=== PATIENT | male | born 1980 | race Caucasian/White ===

== ENCOUNTER 2017-05-28 19:29 | Day surgery (SDC) | payer OTHER ==
--- NOTE | 2017-05-28 19:40 | EDPHY ---
H & P Stated Complaint: SOMETHING STUCK IN THROAT SINCE 3 PM HPI/ROS: CHIEF COMPLAINT: Beef jerky stuck in throat HISTORY OF PRESENT ILLNESS: This patient is a 36 year old male arriving with his family from urgent care complaining of a bolus of beef jerky stuck in his throat since around 15:00 today. He originally attempted to wash the bolus down with a large quantity of water, but choked and could not breathe until he cleared the water from his throat. Since that time, he has been unable to swallow any water or medications. He is able to swallow some saliva. He has been hiccuping and belching often. He visited urgent care and received glucagon and Ativan injections. After a failed attempt to take PO Ativan with water, he was directed to present to the emergency department. The patient has no other complaints. No previous difficulty with swallowing or food impaction. REVIEW OF SYSTEMS: A ten point review of systems was performed and is negative with the exception of the items mentioned in the HPI. - Personal History Current Tetanus/Diphtheria Vaccine: Yes Current Tetanus Diphtheria and Acellular Pertussis (TDAP): Yes - Medical/Surgical History Hx Asthma: Yes Hx Chronic Respiratory Disease: No Hx Diabetes: No Hx Cardiac Disease: No Hx Renal Disease: No Hx Cirrhosis: No Hx Alcoholism: No Hx HIV/AIDS: No Hx Splenectomy or Spleen Trauma: No - Social History Smoking Status: Never smoked Alcohol Use: None Additional Social History: He is with two children. 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 Recently relocated from [place]. - Physical Exam Exam: General Appearance: Alert. Vital signs reviewed. Blood pressure 175/117. Eyes: Pupils equal and round, no conjunctival injection, no discharge. Anicteric. ENT, Mouth: Mucous membranes are moist, no oropharyngeal erythema or edema. Occasionally spitting into a cup. Intermittent hiccups. Neck: Trachea midline. No lymphadenopathy, supple. Respiratory: Lungs are clear to auscultation; no wheezes, rales, or rhonchi. Cardiovascular: Regular rate and rhythm; no murmur, rub, or gallop. Gastrointestinal: Abdomen is soft and nontender, no masses or organomegaly, bowel sounds normal. Skin: Warm and dry, no rashes on exposed skin, normal color. Extremities: No lower extremity edema, no calf tenderness or swelling. Neurological: Alert and oriented. Moving all four extremities easily and equally. Psychiatric: Normal affect. Constitutional: Initial Vital Signs Temperature (C) 36.8 C 05/28/17 19:33 Heart Rate 80 05/28/17 19:33 Respiratory Rate 18 05/28/17 19:33 Blood Pressure 175/117 H 05/28/17 19:33 O2 Sat (%) 98 05/28/17 19:33 O2 Delivery Mode Room Air Allergies/Adverse Reactions: Sulfa (Sulfonamide Antibiotics) Allergy (Verified 05/28/17 19:35) Home Medications: Medication Instructions Recorded Albuterol Sulfate [Ventolin Hfa] 05/28/17 Medical Decision Making ED Course/Re-evaluation: 19:[address] 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 Upper endoscopy for esophageal food impaction planned. He remained stable while in the emergency department. Differential Diagnosis: I considered a differential diagnosis that includes but is not limited to esophageal food impaction, esophageal stricture, esophageal mass, ulcer disease/ GERD, and hiatal hernia. Departure - Departure Disposition: Home, Routine, Self-Care Clinical Impression: Esophageal obstruction due to food impaction Condition: Good Report Scribed for: Zainab De La Rosa Report Scribed by: Pat Almendarez Date of Report: 05/28/17 Time of Report: 19:45 Physician Review and Approval Statement: 05/28/17 19:39 Portions of this note were transcribed by the product manager medical device. I, Dr. Zainab De La Rosa, personally performed the history, physical exam, and medical decision- making; and confirmed the accuracy of the information in the transcribed note.
[2017-05-28] MEDS ORDERED: LR 1,000 ML IV ONE (20:28)
[2017-05-28] MEDS ORDERED: PROPOFOL 200 MG/20 ML VIAL ONE ×2 (20:49→20:51)
[2017-05-28] MEDS ORDERED: SUCCINYLCHOLINE CHLORIDE*ANESTHESIA ONLY*200 MG/10 ML SYR IVP ONE (20:51)
[2017-05-28] MEDS ORDERED: LIDOCAINE 2% 5 ML SDV ONE (20:51)
[2017-05-28] MEDS ORDERED: ALBUTEROL HFA ANES ONLY 200 PUFFS/8.5 GM MDI IH ONE (21:11)
[2017-05-28] MEDS ORDERED: NALOXONE HCL 0.4 MG/ML INJ IVP PRN (21:26)
[2017-05-28] MEDS ORDERED: ACETAMINOPHEN 500 MG TAB PO PRN (21:26)
[2017-05-28] MEDS ORDERED: fentaNYL 100 MCG/2 ML INJ IVP PRN ×2 (21:26)
[2017-05-28] MEDS ORDERED: ONDANSETRON 4 MG/2 ML VIAL IVP PRN (21:26)
--- NOTE | 2017-05-28 21:27 | PDANEPAE ---
ANE History of Present Illness EGD ANE Past Medical History - Pulmonary History Hx Oxygen in Use at Home: No - Endocrine History Hx Diabetes: No ANE Review of Systems Review of systems is: negative - Exercise capacity METS (RN): 4 METS ANE Patient History - Allergies Allergies/Adverse Reactions: Sulfa (Sulfonamide Antibiotics) Allergy (Verified 05/28/17 19:35) - Home Medications Home Medications: Albuterol Sulfate [Ventolin Hfa] 05/28/17 [Last Taken 05/21/17] - Smoking Hx Smoking Status: Never smoked ANE Labs/Vital Signs - Vital Signs Blood Pressure: 163/98 Heart Rate: 92 Respiratory Rate: 16 O2 Sat (%): 96 Height: 185.42 cm Weight: 108.862 kg ANE Physical Exam - Airway Neck exam: FROM Mallampati Score: Class 2 Mouth exam: normal dental/mouth exam - Pulmonary Pulmonary: clear to auscultation - Cardiovascular Cardiovascular: regular rate and rhythym - ASA Status ASA Status: II, E ANE Anesthesia Plan Anesthesia Plan: general endotracheal anesthesia
--- NOTE | 2017-05-28 21:28 | POSTANESTH ---
Post Anesthetic Evaluation Cardiovascular Status: Normal, Stable Respiratory Status: Normal, Stable Level of Consciousness/Mental Status: Can Participate in Eval, Alert and Oriented Pain Control: Adequate, Prn Tx Ordered Nausea/Vomiting Control: Adequate, Prn Tx Ordered Complications Possibly Related to Anesthesia: None Noted
--- NOTE | 2017-05-28 21:29 | GCON ---
[f rep st] CONSULTATION DATE OF CONSULTATION: 05/28/2017 CHIEF COMPLAINT: Dysphagia. HISTORY OF PRESENT ILLNESS: I am asked to see this patient in consultation by Dr. De La Rosa for a evelyne f complaint of dysphagia. The patient is a pleasant 36-year-old, who has a long history of GERD. I t occurs about 4 times a week for which he takes Zantac on a p.r.n. basis. He had an episode of dys phagia eating meat about a month ago that passed spontaneously. Today, about 3 p.m. he ate a bite t o beef jerky which he describes as being a large bite and felt it stick in his esophagus, unable to swallow saliva. He first presented to [facility]. They gave him Ativan and glucagon with some improvement, but still unable to swallow liquids, feeling a foreign body sensati on, he points to his manubrial notch. The patient still has concerns for retained foreign body. ALLERGIES: Sulfa. CURRENT MEDICATIONS: Albuterol and Zantac p.r.n. PAST MEDICAL HISTORY: Reactive airways disease. SOCIAL HISTORY: The patient does not smoke or drink alcohol. FAMILY HISTORY: Notable for alcohol disease in his father. REVIEW OF SYSTEMS: I performed a complete review of systems which is negative except for the pertin ent positives and negatives noted in the HPI above. PHYSICAL EXAMINATION: GENERAL: He is afebrile. No apparent distress. Does have to spit into a cu p periodically. EYES: There is no scleral icterus. HEENT: No oral lesions. There is no crepitus detected. CARDIAC: Regular rhythm. CHEST: Clear to auscultation. No wheezing. ABDOMEN: Posit corbin bowel sounds. Nontender. NEUROLOGIC: Nonfocal. SKIN: No rashes. LABORATORY DATA: None. ASSESSMENT: Patient with intermittent dysphagia with meat impaction at least twice now with acute m eat impaction with concern that this has not cleared spontaneously. The patient does have history o f underlying GERD which I think he is under treating and most likely has esophageal stricture versus esophagitis but consider EoE as an underlying cause for intermittent dysphagia. PLAN: Recommend urgent upper endoscopy tonight for evaluation of retained foreign body and for abiola anay if present and to assess for underlying inflammation or stricture. Thanks for this consult. /[id number]/MODL
[2017-05-28 21:40] VITALS: BP 124/102; PULSE 94; RESP 15; TEMP 97.9; O2SAT 94
--- NOTE | 2017-05-28 22:50 | GPN ---
[f rep st] PROCEDURE NOTE DATE OF PROCEDURE: 05/28/2017 PROCEDURE PERFORMED: Upper endoscopy with foreign body removal. INSTRUMENT USED: Olympus video gastroscope. ANESTHESIA: Provided by anesthesiologist. INDICATIONS: Patient is a 36-year-old with history of GERD and dysphagia with acute foreign body, u nable to swallow his own secretions or to take water. Prior to the procedure, exam was performed in cluding auscultation of heart and lungs within normal limits. Patient's mental status was appropriat e. Procedure was explained including risks of bleeding, perforation, or inability to remove the for eign body, and patient gave his informed consent. FINDINGS: Patient was placed in the left lateral decubitus position. The patient was intubated and general anesthesia was applied. Instrument was inserted through the bite block into the esophagus which was noted for a copious amount of fluid which was removed with the scope, and then there were multiple small pieces of meat, presumably jerky, in the distal esophagus; this was gently rinsed and gently pushed to the distal esophagus and then passed through with gentle pressure into the stomach . This was rinsed further and no further foreign body was retained in the esophagus. At [facility], there was a significant stricture with [id number] overlying inflammation with mild ooz ing. This was rinsed and watched and oozing did stop spontaneously within 3 minutes and did not requ chip intervention. Scope passed through the stricture with some resistance into a moderate-sized hia jeff hernia. There was food in the stomach, so further evaluation was not done. Stomach was decompr essed as best as possible. Scope was removed from the patient, who tolerated the procedure well. T dar of the procedure was approximately 10 minutes. ASSESSMENT: 1. Retained foreign body that was removed and passed into the stomach. 2. Significant underlying esophageal stricture with overlying inflammation, suspect gastroesophagea l reflux disease. 3. Hiatal hernia. 4. There was some mild bleeding likely associated with the significant inflammation but stopped spo ntaneously. PLAN: 1. Clear liquids tonight only. 2. Monitor for any evidence of rebleeding. 3. Recommend patient begin proton pump inhibitor such as [id number] Zantac to take once daily for at least 3 months but suspect that he will require long-term treatment. Patient will benefit f rom repeat upper endoscopy in about 3 months, once this esophagitis has a chance to heal, for dilati on. The patient should chew his food well in the meantime. /[id number]/MODL
== END 2017-05-28 21:48 | disposition home or self-care (01) ==
LOC: FSGY 20:50
PROVIDERS: ATTEND Internal Medicine Gastroenterology
PROC: 0DC58ZZ Extirpation of Matter from Esophagus, Via Natural or Artificial Opening Endoscopic (ICD-10-PCS; principal; 2017-05-28 20:45)
DX: T18.198A Other foreign object in esophagus causing other injury, initial encounter (principal); K21.9 Gastro-esophageal reflux disease without esophagitis
CPT/HCPCS: J0330; J2704